=== PATIENT | male | born 1965 | race Caucasian/White ===

== ENCOUNTER 2024-10-04 07:31 | Emergency (ER) | payer OTHER, SELFPAY ==
[2024-10-04 07:40] VITALS: BP 161/95
[2024-10-04 08:26] VITALS: BP 179/105
--- NOTE | 2024-10-04 08:38 | ED.GENMED ---
History of Present Illness
General
Chief Complaint: Dizziness
Source: patient
Exam Limitations: none
Time Seen by Provider: 10/04/24 08:03
History of Present Illness
History of Present Illness:
58-year-old male otherwise healthy presents complaining of disequilibrium for the past 2 weeks. He noticed it initially getting off the floor playing with his dog he describes a significant spinning sensation at that time. Since then he is felt
lightheaded. He denies chest pain or vision change. He denies unilateral numbness or weakness. No neck pain. He does have a history of migraines. He does not take any medications daily.
Phy Exam
Physical Exam
Physical Exam:
General: Well-appearing male no acute respiratory distress
HEENT: Normocephalic atraumatic pupils equal round reactive to light extraocular's are intact no nystagmus. Face is symmetric
Heart: Regular rate and rhythm no murmurs
Lungs: Clear no wheeze
Neurologic exam: Normal gait alert and oriented x 3 finger-nose [id number] intact. No dysarthria or aphasia. Good strength to the upper. Micheal-Hallpike negative
Ext: no cyanosis
skin: warm, no rash
Course
Orders/Labs/Results
Orders:
Orders
10/04/24 08:31
Electrocardiogram (*1) Urgent
Reason for Study: Vertigo / Dizzy
EKG- Treatment ONCE
10/04/24 08:32
CT Head W/o Iv Contrast Urgent
Comment:
Reason For Exam: dizziness
10/04/24 08:36
Complete Blood Count/With Diff Urgent
Comprehensive Metabolic Panel Urgent
10/04/24 08:40
Meclizine [Antivert] 25 mg PO NOW STA
10/04/24 09:52
MRI Brain [MR Brain Without Contrast] Urgent
Comment:
Reason For Exam: dizziness
Recent pill cam endoscopy?: No
Aspirin Chewable [Low Strength Aspirin] 324 mg PO NOW STA
10/04/24 10:42
Lorazepam [Ativan] 1 mg IV NOW STA
10/04/24 13:43
Lorazepam [Ativan] 1 mg IV NOW STA
Abnormal Lab Results
10/04/24
08:36
MCHC 32.8 L g/dL
(33.0-37.0)
Absolute Neuts (auto) 7.3 H 10^3/uL
(1.4-6.5)
Neutrophils % 79.7 H %
(42.2-75.2)
Lymphocytes % 13.3 L %
(20.5-51.1)
Total Bilirubin 1.4 H mg/dl
(0.2-1.3)
10/04/24 08:36
10/04/24 08:36
Vital Signs
Initial and Last Documented VS:
Initial Vital Signs
Temp Pulse Resp BP Pulse Ox
98.6 F 79 18 161/95 97
10/04/24 07:40 10/04/24 07:40 10/04/24 07:40 10/04/24 07:40 10/04/24 07:40
Last Documented Vital Signs
Temp Pulse Resp BP Pulse Ox
98.6 F 69 18 144/99 97
10/04/24 07:40 10/04/24 12:00 10/04/24 07:40 10/04/24 10:14 10/04/24 10:00
MDM/Problems Addressed
Differential Diagnosis Includes:
Patient presents with hard to describe dizziness. Differential could include vertigo versus arrhythmia versus CVA however symptoms have been ongoing for 2 weeks. Exam not consistent with positional vertigo. No unilateral deficit otherwise. Will
check basic labs EKG and CT of head
*Critical Care Note
Total Time (30-74mins, 75-104mins- exclusive of procedures): Not Applicable
Update Note
Update Note:
CT negative. Patient reexamined still describes disequilibrium. Consulted neurology who saw the patient immediately. Neurology concern for potential stroke. Recommends MRI.
MRI obtained. MRI is negative for acute finding. Discussed with neurology. Patient given 4 baby aspirin prior to the MRI for admission. He will continue baby aspirin daily and follow-up. Reassured patient.
ED Attending Note
-
Portions of this chart may have been created with voice recognition software.� Occasional wrong word or��sound alike� substitutions may have occurred due to the inherent limitations of voice recognition software.
Discharge Plan
Departure
Patient Disposition: Home (Routine Discharge)
Date of Disposition: 10/04/24
Time of Disposition: 15:22
Patient with high blood pressure during this ER visit?: No
Discharge Problem:
Dizziness
Instructions: Dizziness
Referrals:
Zach Lucero DO [Family Provider] -
Activity Restrictions/Additional Instructions:
Take a baby aspirin a day. Please follow-up with your doctor. Return if needed otherwise
Interventions
Interventions:
*Risk Screen - Suicide Last Done: 10/04/24 07:40
*General Assessment Last Done: 10/04/24 10:14
*Neglect/Abuse Screening Last Done: 10/04/24 14:08
*ED COVID-19 Vaccine History Last Done: 10/04/24 10:14
ED- Neurological Assessment Last Done: 10/04/24 08:27
ED Swallowing Screen Last Done: 10/04/24 10:00
Discharge Date and Time
Print Language: MACANESE
[2024-10-04] MEDS: ANTIVERT 25 MG PO (08:57)
[2024-10-04 09:02] LABS: % Basophils 0.7 % (0-2); % Immature Granulocytes 0.2 % (0-0.5); % Lymphocytes 13.3 % (20.5-51.1); % Monocytes 5.1 % (1.7-9.3); % Neutrophils 79.7 % (42.2-75.2); Absolute Basophils 0.1 10^3/uL (0-0.2); Absolute Eosinophils 0.1 10^3/uL (0-0.7); Absolute Lymphocytes 1.2 10^3/uL (1.2-3.4); Absolute Monocytes 0.5 10^3/uL (0.1-0.6); Absolute Neutrophils 7.3 10^3/uL (1.4-6.5); Hematocrit 46.9 % (39.0-52.0); Hemoglobin 15.4 g/dL (13.0-18.0); Mean Corp Hgb Conc. 32.8 g/dL (33.0-37.0); Mean Corpuscular Hgb 27.2 pg (27.0-31.0); Mean Corpuscular Volume 82.7 fL (80.0-94.0); Mean Platelet Volume 10.4 fL (7.4-10.4); Nucleated Red Blood Cells % 0 % (-); Platelet Count 289 10^3/uL (130-400); Red Blood Cell Count 5.67 10^6/uL (4.70-6.10); Red Cell Dist. Width 14.2 % (11.5-14.5); White Blood Cell Count 9.2 10^3/uL (4.8-10.8)
[2024-10-04 09:15] VITALS: BP 145/102
[2024-10-04 09:18] LABS: ALT (SGPT) 36 U/L (0-50); AST (SGOT) 29 U/L (17-59); Albumin 4.8 g/dl (3.5-5.0); Alkaline Phosphatase 76 U/L (38-126); Blood Urea Nitrogen 15 mg/dl (9-20); Calcium 9.7 mg/dl (8.4-10.2); Carbon Dioxide 26 mmol/L (22-30); Chloride 102 mmol/L (98-107); Glucose 98 mg/dl (70-99); Potassium 4.4 mmol/L (3.5-5.1); Sodium 138 mmol/L (135-145); Total Bilirubin 1.4 mg/dl (0.2-1.3); Total Protein 7.2 g/dl (6.3-8.2); eGFR > 60.00
[2024-10-04] MEDS: LOW STRENGTH ASPIRIN 324 MG PO (09:58)
[2024-10-04 10:00] VITALS: BP 144/99
--- NOTE | 2024-10-04 10:00 | CON.NEURO ---
Neuro Assessment/Plan
Assessment
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
with cervical rotation decreased to the right, I performed OMT atlanto axial with symptomatic improvement, though patient states not fully resolved
Plan
will get brain MRI and if negative for stroke ok to discharge.
Consultation
Order
Date of Consultation: 10/04/24
Requesting Provider: Solis Felipe
Reason for Consult: dizziness, dysequilibrium.
Subjective/Objective
Subjective Data
Date of Service: October 04, 2024
58 year old left handed man presents 2 weeks of dizziness, dysequilibrium. He was on the floor playing with his dog, stood up and had sudden vertigo, room spinning, severe x2 minutes
since then, he's felt dizzy/lightheaded/dysequilibrium. No falls, no LOC, no focal weakness or numbness
Objective Data
Vital Signs
Temp Pulse Resp BP Pulse Ox
37.0 C 79 18 161/95 97
10/04/24 07:40 10/04/24 07:40 10/04/24 07:40 10/04/24 07:40 10/04/24 07:40
Lab Results
10/04/24 08:36
10/04/24 08:36
Sodium 138 mmol/L (135-145) 10/04/24 08:36
Potassium 4.4 mmol/L (3.5-5.1) 10/04/24 08:36
BUN 15 mg/dl (9-20) 10/04/24 08:36
Glucose 98 mg/dl (70-99) 10/04/24 08:36
Calcium 9.7 mg/dl (8.4-10.2) 10/04/24 08:36
Patient Allergies
No Known Allergies Allergy (Unverified 10/04/24 07:41)
Physical Exam
-
AAO x3 speech clear, language intact
Face symmetric
full strength b/l UE/LE, nl bulk/tone
sensation intact touch pin vib
DTR 1+ symmetric
HINTS head impulse neg, no nystagmus, no skew with cover/uncover
cervical rotation decreased to the right
[2024-10-04 10:14] VITALS: BP 144/99
[2024-10-04] MEDS: ATIVAN 1 MG IV ×2 (10:58→13:50)
[2024-10-04 16:01] VITALS: BP 138/74
== END 2024-10-04 16:03 | disposition home or self-care (01) ==
LOC: EMR 07:31
PROVIDERS: Physician Assistant; EMERGENCY PHYSICIAN Student in an Organized Health Care Education/Training Program; FAMILY PHYSICIAN Family Medicine
DX: R42 Dizziness and giddiness (principal)
CPT/HCPCS: 99284; 96374; 96376; 70450; 70551; 80053; 85025; 93005